=== PATIENT | male | born 1960 | race Caucasian/White ===

== ENCOUNTER → 2018-03-14 | Outpatient (CLI) | payer OTHER ==
[~2018-03-14] MED LIST: GASTROGRAFIN SOLUTION 30ML (Q9963) As Ordered; ISOVUE-370 76% 100ML VIAL (Q9967) As Ordered
== END ==
LOC: M RAD 13:59
DX: R19.01 Right upper quadrant abdominal swelling, mass and lump (principal); K76.0 Fatty (change of) liver, not elsewhere classified; K57.30 Diverticulosis of large intestine without perforation or abscess without bleeding
CPT/HCPCS: Q9963

== ENCOUNTER → 2018-04-25 | Outpatient (CLI) | payer OTHER | LOC: M RAD 11:44 | DX: R19.03 Right lower quadrant abdominal swelling, mass and lump (principal) | CPT/HCPCS: 76705 ==

== ENCOUNTER → 2018-10-13 | Outpatient (REF) | payer OTHER ==
[2018-10-13 13:44] LABS: CHOLESTEROL RISK RATIO 6.333 (<5)
== END ==
LOC: M SFHCADAM 10:44
PROVIDERS: ATTEND Family Medicine
DX: E78.2 Mixed hyperlipidemia (principal)